=== PATIENT | male | born 1945 | race Caucasian/White ===

== ENCOUNTER → 2017-01-04 | Outpatient (CLI) | payer OTHER | LOC: BMCIMAGING 14:25 | PROVIDERS: ATTEND Internal Medicine | DX: N43.3 Hydrocele, unspecified (principal) ==

== ENCOUNTER → 2019-03-14 | Outpatient (CLI) | payer OTHER | LOC: EMCIMAGING 12:49 | PROVIDERS: ATTEND Urology | DX: N50.89 Other specified disorders of the male genital organs (principal); Z98.890 Other specified postprocedural states | CPT/HCPCS: 76870-PN ==

== ENCOUNTER → 2019-04-20 | Outpatient (CLI) | payer OTHER | LOC: BMCIMAGING 16:51 ==

== ENCOUNTER → 2019-04-24 | Outpatient (CLI) | payer OTHER | LOC: EMCIMAGING 11:17 ==